=== PATIENT | male | born 1960 | race African-American/Black ===

== ENCOUNTER 2020-03-04 11:25 | Emergency (ER) | payer SELFPAY ==
[~2020-03-04] VITALS: Ht 180.3 cm; Wt 106.6 kg
--- NOTE | 2020-03-04 12:04 | Emergency Department Note ---
History of Present Illnes History of Present Illness Chief Complaint: COVID PUI History of Present Illness This is a 60 year old male PATIENT IN FROM HOME WITH COMPLAINTS OF COUGH, CONGESTION, SHORTNESS OF BREATH X 3 DAYS; PATIENT O2 SATS 99% ON ROOM AIR, RESP EVEN AND NONLABORED, RATES UPPER BACK PAIN 10/10 AND ACHY ALL OVER, AMBULATORY WITHOUT ASSISTANCE. Historian: Patient Arrival Mode: Car Change Person Required: No Onset (how long ago): day(s) (3) Location: lower back Quality: pain Radiation: Reports non-radiation Severity: severe Onset quality: gradual Timing of current episode: constant Progression: waxing and waning Chronicity: new Context: Denies recent illness Relieving factors: none Exacerbating factors: none Associated symptoms: Reports cough, Reports shortness of breath, Reports other (ACHY ALL OVER, BACK PAIN) Treatments prior to arrival: none Past Medical/Family History Physician Review I have reviewed the patient's past medical and family history. Any updates have been documented here. Past Medical History Recent Fever: No Clinical Suspicion of Infectio: Yes New/Unexplained Change in Ment: No Past Medical History: Hypertension Past Surgical History: None Social History Smoking Cessation: Never Smoker Counseling Performed: No Alcohol Use: None Any Illegal Drug Use: No Physically hurt or threatened: No Other Any Pre-Existing Lines (PICC,: No Review of Systems Review of Systems Constitutional: Reports as per HPI, Reports chills, Reports fever EENTM: Reports no symptoms Cardiovascular: Reports no symptoms Respiratory: Reports as per HPI, Reports cough, Reports dyspnea Gastrointestinal: Reports no symptoms Genitourinary: Reports no symptoms Musculoskeletal: Reports as per HPI, Reports back pain, Reports other (ACHY ALL OVER) Integumentary: Reports no symptoms Neurological: Reports no symptoms Psychological: Reports no symptoms Endocrine: Reports no symptoms Hematological/Lymphatic: Reports no symptoms Physical Exam Related Data Allergies: Coded Allergies: Penicillins (Verified Allergy, Severe, SWELLING AND HIVES, 03/04/20) Triage Vital Signs Vital Signs Date Time Temp Pulse Resp B/P (MAP) Pulse Ox O2 Delivery O2 Flow Rate FiO2 03/04/20 11:47 98.5 79 22 120/83 99 Room Air Vital signs reviewed: Yes Physical Exam CONSTITUTIONAL Constitutional: Present well-developed, Present well-nourished HENT HENT: Present normocephalic, Present atraumatic, Present oropharynx clear/moist, Present nose normal HENT L/R: Present left ext ear normal, Present right ext ear normal EYES Eyes: Reports PERRL, Reports conjunctivae normal NECK Neck: Present ROM normal PULMONARY Pulmonary: Present effort normal, Present breath sounds normal CARDIOVASCULAR Cardiovascular: Present regular rhythm, Present heart sounds normal, Present ca pillary refill normal, Present normal rate GASTROINTESTINAL Abdominal: Present soft, Present nontender, Present bowel sounds normal GENITOURINARY Genitourinary: Present exam deferred SKIN Skin: Present warm, Present dry MUSCULOSKELETAL Musculoskeletal: Present ROM normal, Present other (MUSCLE SPASM BILATERAL LOEWR LUMBAR PARASPINAL MM.) NEUROLOGICAL Neurological: Present alert, Present oriented x 3, Present no gross motor or sensory deficits PSYCHOLOGICAL Psychological: Present mood/affect normal, Present judgement normal Assessment & Plan Medical Decision Making MDM VITAL SIGNS GOOD, O2 SAT 99% ON RA, NO DISTRESS Reassessment Reassessment DC HOME, PRESUMED COVID, INSTRUCTIONS FOR SELF-QUARANTINE, PRONING, GET COVID TEST DONE, F/U PCP, RTED IF SX'S WORSEN, TYLENOL/MOTRIN UD Assessment & Plan Final Impression: (1) Viral syndrome (2) COVID-19 Depart Disposition: HOME, SELF-CARE Last Vital Signs Date Time Temp Pulse Resp B/P (MAP) Pulse Ox O2 Delivery O2 Flow Rate FiO2 03/04/20 11:47 98.5 79 22 120/83 99 Room Air AYDEN DURAN MD Mar 04, 2020 12:03
== END 2020-03-04 12:45 | disposition home or self-care (01) ==
LOC: ER 12:39
DX: U07.1 COVID-19 (principal); B34.9 Viral infection, unspecified; R05 Cough; R06.02 Shortness of breath; I10 Essential (primary) hypertension
CPT/HCPCS: 99282